=== PATIENT | male | born 1990 | race African-American/Black ===

== ENCOUNTER 2024-11-24 18:25 | Inpatient (IN) ==
[2024-11-24] MEDS: ONDANSETRON 4 MG OD TAB PO STA (19:17)
[2024-11-24] MEDS: LORazepam 1 MG TAB SL STA ×2 (19:18→19:37)
--- NOTE | 2024-11-24 19:30 | Emergency Department Note ---
History of Present Illness General Chief complaint: Confusion Stated complaint: CONFUSED, COTTON [employer]KER NOTICED SOMETHING WRONG Time Seen by Provider: 11/24/24 19:04 History of Present Illness Provider complaint: mental health evaluation 34-year-old male was brought to the hospital for mental health evaluation. Reportedly, the patient was in a [employer] ride share and then the route salesman and driver thought he was acting bizarre so they brought him to the hospital. This was not the patient's intended destination. The patient states he is not sure what is going on. He states he smoked some marijuana recently which she thinks might have been laced with something. Patient denies any pain currently. No reported trauma. Patient appears to be talking to internal stimuli. Patient reported to nursing that he smoked methamphetamines yesterday not marijuana. Home Medications Medication Instructions Recorded Confirmed Type No Known Home Medications 11/24/24 11/24/24 History Allergies Allergy/AdvReac Type Severity Reaction Status Date / Time No Known Allergies Allergy Unverified 11/24/24 18:44 Past Med/Surg History Problem List (Updated 11/24/24 @ 22:33 by Mila Jane MD) Homeless Transaminitis Polysubstance abuse (Acute) HEATHER (acute kidney injury) (Acute) Hyponatremia (Acute) Family History Other Family history non-contributory Social History Smoking Status: Never smoker Hx Alcohol Use: No Hx Substance Use: Yes Preferred Language: [place] Feels Safe at Home: Yes Physical Exam Vital Signs Vital Signs - 24 hr 11/24/24 18:30 11/24/24 21:32 11/24/24 22:51 Temperature 36.7 C Temperature Source Temporal Artery Scan Pulse Rate 100 H 98 H Pulse Rate [Apical] 97 H Pulse Rate from SpO2 Sensor Pulse Rhythm [Apical] Regular Pulse Strength [Apical] Normal Respiratory Rate 18 16 Respiratory Effort / Characteristics Non-Labored Spontaneous Non-Labored Spontaneous Respiratory Depth Normal Normal Respiratory Pattern Regular Blood Pressure 165/100 H Blood Pressure [Right Arm] 146/97 H Blood Pressure Mean 121 Blood Pressure Mean [Right Arm] 113 Blood Pressure Position Sitting Blood Pressure Position [Right Arm] Sitting Pulse Oximetry 98 98 Oxygen Delivery Method Room Air Room Air Sepsis Recent Fever Within 48 Hours No Sepsis New/Unexplained Change in Mental Status N/A Sepsis Action Taken by Nursing No Action Required 11/24/24 22:59 11/24/24 22:59 11/24/24 23:05 Temperature Temperature Source Pulse Rate 99 H 101 H Pulse Rate [Apical] 96 H Pulse Rate from SpO2 Sensor 95 H Pulse Rhythm [Apical] Pulse Strength [Apical] Respiratory Rate 16 16 23 Respiratory Effort / Characteristics Non-Labored Spontaneous Respiratory Depth Normal Respiratory Pattern Regular Blood Pressure 149/98 H Blood Pressure [Right Arm] Blood Pressure Mean 126 Blood Pressure Mean [Right Arm] Blood Pressure Position Blood Pressure Position [Right Arm] Pulse Oximetry 99 99 99 Oxygen Delivery Method Room Air Room Air Room Air Sepsis Recent Fever Within 48 Hours Sepsis New/Unexplained Change in Mental Status Sepsis Action Taken by Nursing Physical Exam GENERAL: Patient appears to be talking to internal stimuli and people that are not in the room. He is pacing around the room talking to himself. HENT: Exam performed. - Head: Normocephalic and atraumatic. EYES: Conjunctivae and EOM are normal. Right eye exhibits no discharge. Left eye exhibits no discharge. No scleral icterus. NECK: Normal range of motion. Neck supple. No JVD present. CV: Normal rate, regular rhythm, normal heart sounds and intact distal pulses. There is no peripheral edema. Palpable radial pulses bue. PULM/CHEST: Effort normal and breath sounds normal. No respiratory distress. No stridor. no wheezes. no rales. NEURO: Motor and sensation grossly intact. SKIN: Skin is warm and dry. He is not diaphoretic. PSYCH: Bizarre affect. Course Course 1903: The patient was evaluated in room A6. A complete history and physical exam was performed 2209: Vital signs stable. Labs showed white blood cell count of 15.13: Thought to be reactive. Sodium 128. Creatinine 1.66. AST 605 ALT 120. Patient positive for amphetamines and marijuana. Family was contacted by case management and states that the patient has a long history of drug and alcohol abuse. Patient will be admitted for HEATHER and hyponatremia. IV fluids started on the patient. Dr. Dill in the admitting team will be down to evaluate the patient. Administered Medications Lactated Ringer's (Lr) 1,000 mls @ 125 mls/hr IV .Q8H LISA Stop: 11/25/24 22:29 Last Admin: 11/24/24 22:41 Dose: 125 mls/hr Documented By: SANDY Discontinued Medications Sodium Chloride (Nss) 1,000 mls @ 999 mls/hr IV .Q1H1M ONE Stop: 11/24/24 22:25 Last Infusion: 11/24/24 22:42 Dose: Infused Documented By: Admin: 11/24/24 21:40 Dose: 999 mls/hr Documented By: SANDY Lorazepam (Lorazepam 1 Mg Tab) 1 mg SL NOW STA Stop: 11/24/24 19:11 Last Admin: 11/24/24 19:18 Dose: 1 mg Documented By: SANDY Lorazepam (Lorazepam 1 Mg Tab) 1 mg SL NOW STA Stop: 11/24/24 19:35 Last Admin: 11/24/24 19:37 Dose: 1 mg Documented By: SANDY Olanzapine (Olanzapine Zydis 5 Mg Orally Dis. Tab) 5 mg PO NOW STA Stop: 11/24/24 20:18 Last Admin: 11/24/24 20:39 Dose: Not Given Documented By: SANDY Ondansetron HCl (Ondansetron 4 Mg Od Tab) 4 mg PO NOW STA Stop: 11/24/24 19:11 Last Admin: 11/24/24 19:17 Dose: 4 mg Documented By: SANDY Medical Decision Making Laboratory Data Attestation: I reviewed the patient's lab results. 11/24/24 20:26 11/24/24 20:26 Lab Results 11/24/24 11/24/24 11/24/24 Range/Units 20:09 20:12 20:26 WBC 15.13 H (4.8-10.8) K/ul RBC 4.98 (4.70-6.10) M/uL Hgb 15.0 (14.0-18.0) g/dl Hct 42.4 (42.0-52.0) % MCV 85.1 (80.0-100.0) fL MCH 30.1 (25.0-34.0) pg MCHC 35.4 (32.0-36.0) g/dL RDW Std Deviation 39.7 (36.4-46.3) fL RDW Coeff of Tanner 12.7 (11.5-14.5) % Plt Count 317 (130-400) K/uL MPV 9.3 L (9.4-12.4) fL Immature Gran % (Auto) 0.3 % Neut % (Auto) 74.5 % Lymph % (Auto) 14.1 % Jennings % (Auto) 10.4 % Eos % (Auto) 0.3 % Baso % (Auto) 0.4 % Neut # (Auto) 11.25 H (1.40-6.50) K/uL Lymph # (Auto) 2.14 (1.20-3.40) K/uL Jennings # (Auto) 1.58 H (0.11-0.59) K/uL Eos # (Auto) 0.05 (0.00-0.50) K/uL Baso # (Auto) 0.06 (0.00-0.20) K/uL Immature Gran # (Auto) 0.05 (0.01-0.20) K/uL Sodium 128 L (136-145) mmol/L Potassium 4.0 (3.5-5.1) mmol/L Chloride 94 L (98-107) mmol/L Carbon Dioxide 27 (21-32) mmol/L Anion Gap 7 (3-11) BUN 42 H (6-23) mg/dl Creatinine 1.66 H (0.6-1.4) mg/dl Est Cr Clr Drug Dosing 64.1 ml/min eGFR 54.79 BUN/Creatinine Ratio 25.3 H (10-20) Glucose 116 H (70-99(Fasting)) mg/dl Lactate (0.4-2.0) mmol/L Calcium 10.3 (8.6-10.3) mg/dl Total Bilirubin 2.4 H (0.2-1.0) mg/dl AST 605 H (13-39) U/L ALT 120 H (7-52) U/L Alkaline Phosphatase 59 (34-104) U/L Total Creatine Kinase (30-223) U/L Total Protein 8.7 H (6.0-8.3) gm/dl Albumin 5.5 H (3.4-5.0) gm/dl Globulin 3.2 (2.5-4.0) gm/dl Albumin/Globulin Ratio 1.7 (0.9-2) TSH 3.565 (0.300-4.500) uIu/ml Urine Color Yellow Urine Appearance Clear (Clear) Urine pH 6.0 (4.5-7.5) Ur Specific [place] 1.005 (1.000-1.030) Urine Protein Negative (Negative) Urine Glucose (UA) Negative (Negative) Urine Ketones Trace H (Negative) Urine Blood 2+ H (Negative) Urine Nitrite Negative (Negative) Urine Bilirubin Negative (Negative) Urine Urobilinogen Negative (Negative) Ur Leukocyte Esterase Negative (Negative) Urine WBC (Auto) 0-5 (0-5) /hpf Urine RBC (Auto) 0-2 (0-2) /hpf U Hyaline Cast (Auto) 0-2 (0-2) /lpf U Epithel Cells (Auto) 0-2 (0-2) /hpf Urine Bacteria (Auto) None Seen (None Seen) Salicylates < 3.0 L (3.0-30) mg/dl Urine Opiates Screen Neg (Neg) Ur Methadone, Qual Neg (Neg) Urine Fentanyl Screen Neg (Neg) Acetaminophen < 3 L (10-30) ug/ml Urine Barbiturates Neg (Neg) Ur Phencyclidine (PCP) Neg (Neg) U Amphetamin/Meth Scrn Pos H (Neg) MDMA (Ecstasy) Screen Neg (Neg) U Benzodiazepines Scrn Neg (Neg) Ur Cocaine Metabolite Neg (Neg) U Marijuana (THC) Screen Pos H (Neg) Ethyl Alcohol mg/dL < 10.0 (<10.0) mg/dl SARS-CoV-2, RNA, NAAT (NEGATIVE) 11/24/24 11/24/24 Range/Units 21:34 22:38 WBC (4.8-10.8) K/ul RBC (4.70-6.10) M/uL Hgb (14.0-18.0) g/dl Hct (42.0-52.0) % MCV (80.0-100.0) fL MCH (25.0-34.0) pg MCHC (32.0-36.0) g/dL RDW Std Deviation (36.4-46.3) fL RDW Coeff of Tanner (11.5-14.5) % Plt Count (130-400) K/uL MPV (9.4-12.4) fL Immature Gran % (Auto) % Neut % (Auto) % Lymph % (Auto) % Jennings % (Auto) % Eos % (Auto) % Baso % (Auto) % Neut # (Auto) (1.40-6.50) K/uL Lymph # (Auto) (1.20-3.40) K/uL Jennings # (Auto) (0.11-0.59) K/uL Eos # (Auto) (0.00-0.50) K/uL Baso # (Auto) (0.00-0.20) K/uL Immature Gran # (Auto) (0.01-0.20) K/uL Sodium (136-145) mmol/L Potassium (3.5-5.1) mmol/L Chloride (98-107) mmol/L Carbon Dioxide (21-32) mmol/L Anion Gap (3-11) BUN (6-23) mg/dl Creatinine (0.6-1.4) mg/dl Est Cr Clr Drug Dosing ml/min eGFR BUN/Creatinine Ratio (10-20) Glucose (70-99(Fasting)) mg/dl Lactate 1.8 (0.4-2.0) mmol/L Calcium (8.6-10.3) mg/dl Total Bilirubin (0.2-1.0) mg/dl AST (13-39) U/L ALT (7-52) U/L Alkaline Phosphatase (34-104) U/L Total Creatine Kinase 39645 H (30-223) U/L Total Protein (6.0-8.3) gm/dl Albumin (3.4-5.0) gm/dl Globulin (2.5-4.0) gm/dl Albumin/Globulin Ratio (0.9-2) TSH (0.300-4.500) uIu/ml Urine Color Urine Appearance (Clear) Urine pH (4.5-7.5) Ur Specific [place] (1.000-1.030) Urine Protein (Negative) Urine Glucose (UA) (Negative) Urine Ketones (Negative) Urine Blood (Negative) Urine Nitrite (Negative) Urine Bilirubin (Negative) Urine Urobilinogen (Negative) Ur Leukocyte Esterase (Negative) Urine WBC (Auto) (0-5) /hpf Urine RBC (Auto) (0-2) /hpf U Hyaline Cast (Auto) (0-2) /lpf U Epithel Cells (Auto) (0-2) /hpf Urine Bacteria (Auto) (None Seen) Salicylates (3.0-30) mg/dl Urine Opiates Screen (Neg) Ur Methadone, Qual (Neg) Urine Fentanyl Screen (Neg) Acetaminophen (10-30) ug/ml Urine Barbiturates (Neg) Ur Phencyclidine (PCP) (Neg) U Amphetamin/Meth Scrn (Neg) MDMA (Ecstasy) Screen (Neg) U Benzodiazepines Scrn (Neg) Ur Cocaine Metabolite (Neg) U Marijuana (THC) Screen (Neg) Ethyl Alcohol mg/dL (<10.0) mg/dl SARS-CoV-2, RNA, NAAT NEGATIVE (NEGATIVE) MDM Narrative Vital signs stable. Labs showed white blood cell count of 15.13: Thought to be reactive. Sodium 128. Creatinine 1.66. AST 605 ALT 120. Patient positive for amphetamines and marijuana. Family was contacted by case management and states that the patient has a long history of drug and alcohol abuse. Patient will be admitted for HEATHER and hyponatremia. IV fluids started on the patient. Dr. Dill in the admitting team will be down to evaluate the patient. Impression & Plan Hyponatremia, HEATHER (acute kidney injury), Polysubstance abuse Discharge Plan Visit Data Chief Complaint: Confusion Stated Complaint: CONFUSED, [employer]KER NOTICED SOMETHING WRONG ED Provider: Shayan Garcia Discharge Problem: Hyponatremia, HEATHER (acute kidney injury), Polysubstance abuse Patient Disposition: Admitted As Inpatient Forms Stand Alone [facility]: [facility] [place] [facility] [place] Prescriptions Prescriptions: No Action No Known Home Medications Referrals Referrals: PCP,NO [Primary Care Provider] -
[2024-11-24 20:32] LABS: Appearance Urine Clear (Clear); Bacteria Urine Automated None Seen (None Seen); Bilirubin Urine Negative (Negative); Blood Urine 2+ (Negative); Cast Urine Automated 0-2 /lpf (0-2); Color Urine Yellow; Epithelial Cell Urine Auto 0-2 /hpf (0-2); Glucose Urine UA Negative (Negative); Ketones Urine Trace (Negative); Leukocyte Esterase Urine Negative (Negative); Nitrite Urine Negative (Negative); Protein Urine Negative (Negative); RBC Urine Automated 0-2 /hpf (0-2); Specific Gravity Urine 1.005 (1.000-1.030); Urobilinogen Urine Negative (Negative); WBC Urine Automated 0-5 /hpf (0-5)
[2024-11-24] MEDS: OLANZapine ZYDIS 5 MG ORALLY DIS. TAB PO STA (20:39)
[2024-11-24 20:50] LABS: Acetaminophen < 3 ug/ml (10-30); Salicylate < 3.0 mg/dl (3.0-30)
[2024-11-24 21:10] LABS: Albumin Globulin Ratio 1.7 (0.9-2); Albumin Level 5.5 gm/dl (3.4-5.0); BUN Creatinine Ratio 25.3 (10-20); Bilirubin,Total 2.4 mg/dl (0.2-1.0); Calcium 10.3 mg/dl (8.6-10.3); Creatinine Clr Calc Pharmacy 64.1 ml/min; Globulin 3.2 gm/dl (2.5-4.0); Total Protein 8.7 gm/dl (6.0-8.3)
[2024-11-24 21:20] LABS: Basophils # (auto) 0.06 K/uL (0.00-0.20); Basophils % (auto) 0.4 %; Eosinophils # (auto) 0.05 K/uL (0.00-0.50); Eosinophils % (auto) 0.3 %; Hematocrit (blood only) 42.4 % (42.0-52.0); Immature Granulocytes # (auto) 0.05 K/uL (0.01-0.20); Immature Granulocytes % (auto) 0.3 %; Lymphocytes # (auto) 2.14 K/uL (1.20-3.40); Lymphocytes % (auto) 14.1 %; Mean Corpuscular Hemoglobin 30.1 pg (25.0-34.0); Mean Corpuscular Hgb Conc 35.4 g/dL (32.0-36.0); Mean Corpuscular Volume 85.1 fL (80.0-100.0); Mean Platelet Volume 9.3 fL (9.4-12.4); Monocytes # (auto) 1.58 K/uL (0.11-0.59); Monocytes % (auto) 10.4 %; Neutrophils # (auto) 11.25 K/uL (1.40-6.50); Neutrophils % (auto) 74.5 %; Platelet Count 317 K/uL (130-400); RDW Coefficient of Variation 12.7 % (11.5-14.5); RDW Standard Deviation 39.7 fL (36.4-46.3); Red Blood Count 4.98 M/uL (4.70-6.10); White Blood Count 15.13 K/ul (4.8-10.8)
[2024-11-24 21:21] LABS: Amphetamines+Metham, Urine Pos (Neg); Barbiturates, Urine Neg (Neg); Benzodiazepine, Urine Neg (Neg); Cocaine, Urine Neg (Neg); Fentanyl, Urine Neg (Neg); MDMA (Ecstacy), Urine Neg (Neg); Marijuana, Urine Pos (Neg); Methadone, Urine Neg (Neg); Opiate, Urine Neg (Neg); Phencyclidine, Urine Neg (Neg)
[2024-11-24 21:25] LABS: Thyroid Stimulating Hormone 3.565 uIu/ml (0.300-4.500)
[2024-11-24] MEDS: SODIUM CHLORIDE 0.9% 1,000 ML IV ONE (21:40)
--- NOTE | 2024-11-24 22:19 | History & Physical Report ---
Date of Service November 24, 2024 Assessment & Plan (1) Polysubstance abuse: (2) HEATHER (acute kidney injury): (3) Transaminitis: (4) Homeless: Plan Patient is a 34 y/o M w/ hx of polysubstance use (smokes methamphetamine and marijuana) who was admitted due to increased agitation and behavioral changes suggestive of methamphetamine use. Agitation // Polysubstance abuse - Patient with increased agitation and responding to internal stimuli which is likely related to recent methamphetamine use - Behavioral sxs resolved with Ativan 1 mg SL x2 and patient now calm - Patient denies use of IV substances - Will admit to PCU/Tele - Continue IVF at maintenance rate - Monitor for signs of withdrawal and manage supportively - Could consider psych evaluation during admission or as an outpatient Transaminitis - Noted transaminitis on labs at time of admission - Acetaminophen and alcohol levels wnl - Possible this elevation in transaminases is due to direct hepatotoxic effects of methamphetamines, but cannot r/o other causes such as hepatitis or rhabdomyolysis given coexisting HEATHER, coexisting hyponatremia, and uncertainty with regards to frequency of use of substance - Will order Acute hepatitis panel, CK, lactate - Continue mIVF and monitor am labs - If transaminases persistently elevated and labs unremarkable, could consider US or other imaging HEATHER - Elevated Cr at 1.66 - Possible causes include dehydration, substance use, or rhabdomyolysis - Given 1L bolus in ED and continue mIVF - Monitor am labs Hyponatremia - Na of 128 at time of admission; asymptomatic - Patient appears euvolemic or even hypovolemic, therefore causes could include poor oral intake, substance use or substance-induced SIADH, loss though N/V or excessive sweating, or related to rhabdo if labs show changes suggestive of this - Added UOsm, Ivett, and Serum Osm to am labs - Monitor am labs Dispo: PCU/Tele Fluids: LR @ 125 ml/hr Diet: Regular VTE ppx: Lovenox Code Status: FULL History of Present Illness Chief Complaint: Confusion Primary Care Provider: NO PCP Patient is a 34 y/o M w/ hx of polysubstance use (smokes methamphetamine and marijuana) who was brought to the ED by putaway driver due to behavioral concerns. Patient has hx of methamphetamine use and states that the last time he used this substance was yesterday (11/23/24) night, and since then the only thing he's used is marijuana. Denies use of other substances such as alcohol and denies use of any IV substances. At time of arrival, patient was noted to be very agitated and responding to internal stimuli, and noted that he was pacing back and forth in his room and refusing any IV or lines. After administration of 2 mg of PO Ativan, patient became much more calm. 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 Denie shaving any other sxs such as chest pain, SOB/COBIAN, weakness, chills, fevers, body aches, N/V/D, or any other systemic sxs. Labs/Imaging: CBC w/ leukocytosis and hgb of 15, plt of 317. CMP showing hyponatremia of 128 and elevated creatinine at 1.66, but no other electrolyte abnormalities. LFTs with elevated transaminases (AST 605 and ALT of 120) and normal alk phos. TSH of 3.5. Urine tox screen positive for amphetamines and marijuana. Normal acetaminophen and alcohol levels. No imaging. Medical History: [Reviewed] Medications: [Reviewed] Surgical History: [Reviewed] Family history: [Reviewed] Allergies: [Reviewed] Social History: [Reviewed] Code Status: FULL Allergies Allergy/AdvReac Type Severity Reaction Status Date / Time No Known Allergies Allergy Unverified 11/24/24 18:44 Home Medications Medication Instructions Recorded Confirmed Type No Known Home Medications 11/24/24 11/24/24 History Past Med/Surg History Problem List (Updated 11/25/24 @ 03:58 by Mila Jane MD) Rhabdomyolysis Homeless Transaminitis Polysubstance abuse (Acute) HEATHER (acute kidney injury) (Acute) Hyponatremia (Acute) Family History Other Family history non-contributory Social History Smoking Status: Never smoker Hx Alcohol Use: No Hx Substance Use: Yes Preferred Language: Sami Feels Safe at Home: Yes Review of Systems Review of Systems: As per HPI Physical Exam Physical Exam: GENERAL: AAOx3, afebrile, calm and sitting on the side of his bed, NAD HEAD: AT, NC EYES: EOM intact, MERARY CHEST: symmetric chest expansions w/ respirations CARDIO: RRR, no r/m/g PULMONARY: CTA b/l AP, normal respiratory effort, no respiratory distress GI: soft, non distended, non tender EXTREMITIES: no swelling or calf tenderness b/l Results & Data Results & Data Vital Signs (Past 12 Hours) Vital Signs Temp Pulse Pulse Resp BP BP Pulse Ox 11/24/24 21:32 97 H 16 146/97 H 98 11/24/24 18:30 36.7 C 100 H 18 165/100 H 98 O2 Del Method 11/24/24 21:32 Room Air 11/24/24 18:30 Room Air Supervising Physician Co-Signing Physician Notes I personally saw and examined the patient. I independently reviewed the labs, imaging, problem list, medication list, past medical history and family history. I verified all daily points and agree with resident physician Dr Mila Jane MD with the following exceptions and/or additions: 34 year old male presents to the ER with agitation following methamphetamine use. Much calmer after lorazepam and haloperidol given in the ER. No muscle pain despite elevated CK. No change in urine. O/E Alert and orientated to person and year, HS increased rate, regular rhythm, no murmurs, Chest CTAB, Abdo SNT A/P Rhabdomyolysis - IV fluids, repeat CK in AM, suspect elevated LFTs are reflective of muscle breakdown rather than any issue with his liver Hyponatremic hypovolemia / HEATHER - suspected pre-renal, IV fluids, repeat level in AM Resident Activity Tracking Resident Involvement: Resident Care Provided Care Provided: Adult Hospital Medicine
[2024-11-24] MEDS ORDERED: ONDANSETRON INJ 2 MG/ML 2 ML VIAL IV PRN (22:20)
[2024-11-24] MEDS ORDERED: ACETAMINOPHEN 325 MG TAB PO PRN (22:20)
[2024-11-24] MEDS ORDERED: POLYETHYLENE (MIRALAX) 17 GM PACK PO PRN (22:20)
[2024-11-24] MEDS: LACTATED RINGER'S 1,000 ML IV SCH (22:41)
[2024-11-25 01:16] LABS: Magnesium 2.5 mg/dl (1.7-2.4); Phosphorus 4.2 mg/dl (2.5-4.9)
--- NOTE | 2024-11-25 03:57 | Discharge Summary ---
Date of Service November 25, 2024 Admission HPI Per Admitting Provider Patient is a 34 y/o M w/ hx of polysubstance use (smokes methamphetamine and marijuana) who was brought to the ED by airport shuttle driver due to behavioral concerns. Patient has hx of methamphetamine use and states that the last time he used this substance was yesterday (11/23/24) night, and since then the only thing he's used is marijuana. Denies use of other substances such as alcohol and denies use of any IV substances. At time of arrival, patient was noted to be very agitated and responding to internal stimuli, and noted that he was pacing back and forth in his room and refusing any IV or lines. After administration of 2 mg of PO Ativan, patient became much more calm. 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 Denie shaving any other sxs such as chest pain, SOB/COBIAN, weakness, chills, fevers, body aches, N/V/D, or any other systemic sxs. Labs/Imaging: CBC w/ leukocytosis and hgb of 15, plt of 317. CMP showing hyponatremia of 128 and elevated creatinine at 1.66, but no other electrolyte abnormalities. LFTs with elevated transaminases (AST 605 and ALT of 120) and normal alk phos. TSH of 3.5. Urine tox screen positive for amphetamines and marijuana. Normal acetaminophen and alcohol levels. No imaging. Medical History: [Reviewed] Medications: [Reviewed] Surgical History: [Reviewed] Family history: [Reviewed] Allergies: [Reviewed] Social History: [Reviewed] Code Status: FULL Admission Exam Per Admitting Provider GENERAL: AAOx3, afebrile, calm and sitting on the side of his bed, NAD HEAD: AT, NC EYES: EOM intact, MERARY CHEST: symmetric chest expansions w/ respirations CARDIO: RRR, no r/m/g PULMONARY: CTA b/l AP, normal respiratory effort, no respiratory distress GI: soft, non distended, non tender EXTREMITIES: no swelling or calf tenderness b/l Principal Diagnosis Polysubstance use, Rhabdomyolysis Discharge Exam GENERAL: AAOx3, afebrile, calm and sitting on the side of his bed, NAD HEAD: AT, NC EYES: EOM intact, MERARY CHEST: symmetric chest expansions w/ respirations CARDIO: RRR, no r/m/g PULMONARY: CTA b/l AP, normal respiratory effort, no respiratory distress GI: soft, non distended, non tender EXTREMITIES: no swelling or calf tenderness b/l Discharge Data Allergies Allergy/AdvReac Type Severity Reaction Status Date / Time No Known Allergies Allergy Unverified 11/24/24 18:44 Consultations 11/24/24 21:25 ED Decision to Admit Stat Hospital Course (1) Polysubstance abuse: (2) HEATHER (acute kidney injury): (3) Transaminitis: (4) Homeless: (5) Rhabdomyolysis: Plan Patient is a 34 y/o M w/ hx of polysubstance use (smokes methamphetamine and marijuana) who was admitted due to increased agitation and behavioral changes suggestive of methamphetamine use. Initial agitation resolved with Ativan 1 mg SL x2. Elevated transaminases found which could be related to direct hepatotoxic effects of methamphetamine and/or other cause such as dehydration, rhabdomyolysis, or hepatitis. Hepatitis panel was ordered and is pending. Labs at time of admission also showed HEATHER and hyponatremia, and given hx of methamphetamine use and uncertainty surrounding frequency of use, CK was added and showed level of ~31,000, leading to dx of rhabdomyolysis with associated HEATHER. This could also be the cause for the noted blood in U/A with no obvious hematuria. Patient was given 1L NSS bolus in ED and started on IVF at maintenance rate. Later on, patient stated he wanted to leave the hospital to "get better sleep and eat something" and attempted to walk out of the ED with IV still in place. Security was called and patient brought back to his room. We did discuss with him his current diagnosis of rhabdomyolysis that likely came as a consequence of methamphetamine use, as well as the risk for persistent kidney injury that may progress to renal failure and need for dialysis if rhabdomyolysis was not managed. Patient understood what was discussed and repeated what we had mentioned with regards to his diagnosis and the risks of not treating his rhabdomyolysis. Also discussed and patient repeated back to us the reasons to return to ED such as hematuria or decreased urine output. Patient also advised that he should maintain high oral hydration and was advised that continued use of methamphetamine may lead to persistence/worsening or recurrence. After discussion, patient stated he will leave AMA. AMA form signed by patient and IV was removed. Total Time Total Time Spent Total Time Spent (In Minutes): As per attending attestation. Discharge Plan Discharge Items Patient Disposition: Against Medical Advice Reason For Visit: CONFUSION Activity: Per Instructions section Non-emergency contact: Primary Care Provider Follow-up/Referrals: PCP,NO [Primary Care Provider] - Pending Studies at Discharge: No Stand-Alone Forms: My [employer], Smoking Cessation Skilled Items Patient informed of condition?: Yes (informed of condition as well as potential risks of them going untreated) Medications and DC Order Prescriptions: No Action No Known Home Medications Discharge Orders: Left Against Medical Advice (Routine); Ordered 11/25/24 Ordered By: Mila Jane Admission Data Admit Date/Time: 11/24/24 22:21 Attending Provider: Arash Dill Admit Provider: Mila Jane Primary Care Provider: PCP,NO Other Providers: rAash Dill Supervising Physician Co-Signing Physician Notes I personally saw and examined the patient. I independently reviewed the labs, problem list, medication list, past medical history and family history. I verified all daily points and agree with resident physician Dr Mila Jane MD with the following exceptions and/or additions: Patient was deemed to have capacity he was able to understand, weigh up, come to a decision and communicate the decision that he wished to be discharged against medical advice. He was heavily advised to not do further drugs and drink plenty of fluids. If his urine turns red/brown he was advised to return to the ER. Blood currently present on UA but urine appears grossly clear and patient without muscle pain. He was advised rhabomyolysis can cause kidney damage leading to CKD or dialysis or even if his kidneys fail. Resident Activity Tracking Resident Involvement: Resident Care Provided Care Provided: Adult Hospital Medicine
--- NOTE | 2024-11-25 06:30 | Billing Data ---
Date of Service November 24, 2024 Coding Level of Care Code 17083 INT INP/OBS CARE
--- NOTE | 2024-11-25 06:33 | Billing Data ---
Date of Service November 25, 2024 Coding Level of Care Code 42647 INP/OBS DISCH >30 MIN
[2024-11-25] MEDS ORDERED: ENOXAPARIN INJ 40 MG/0.4 ML SYR SQ SCH (09:00)
[2024-11-26 09:15] LABS: Hep B Surface Ag with confirm Negative (Negative)
[2024-11-26 09:21] LABS: Hep C Ab Rflx HepCQuant RNA Negative (Negative)
[2024-11-27 13:43] LABS: Hepatitis A Antibody IgM NON-REACTIVE (NON-REACTIVE); Hepatitis B Core Antibody IgM NON-REACTIVE (NON-REACTIVE)
== END 2024-11-25 02:12 | disposition left against medical advice (07) | DRG 894 ==
LOC: ED 18:25 → EDINP 22:21